=== PATIENT | male | born 1995 | race American Indian/Alaskan Native ===

== ENCOUNTER 2022-02-26 18:25 | Emergency (ER) | payer OTHER ==
[2022-02-26] MEDS ORDERED: LORazepam 2 MG/ML VIAL IM PRN (19:02)
[2022-02-26] MEDS ORDERED: HALOPERIDOL LACTATE 5 MG/1 ML INJ IM PRN (19:02)
--- NOTE | 2022-02-26 19:03 | Emergency Department Report ---
ED General Adult HPI - General Chief complaint: Psych Stated complaint: SI/DEPRESSION Time Seen by Provider: 02/26/22 18:53 Source: patient, family, EMS ( EMS documentation not available at time of chart dictation ), RN notes reviewed Mode of arrival: Stretcher Limitations: No Limitations - History of Present Illness Initial comments: Primary CARE doctor: Perry benton The patient is a 26-year-old gentleman. He has a history of psychiatric disease. He arrived to the hospital with a signed 1013, indicating that the patient has homicidality and suicidality. Patient is accompanied by his mother, Ms. Hatfield; [phone]. She provides the bulk of the patient's history of present illness. His father is Mr. Gabriel Hatfield; [phone]. As per his mother, patient has been acting erratically, and strangely for the past week. Patient has reportedly induced homicidality and suicidality. The patient himself is awake, moving 4 extremities, and breathing spontaneously. He will not answer my open ended questions or close ended questions. EMS reports stable vital signs verbally to myself in the field. As per his mother, he is not COVID-19 vaccinated. As per his mother, no fever, nausea, vomiting or diarrhea, urinary symptoms. She believes he consumes recreational marijuana. She is not sure if he consumes any hard drugs. -: days(s) Severity scale (0 -10): 2 - Related Data Allergies Allergy/AdvReac Type Severity Reaction Status Date / Time No Known Allergies Allergy Unverified 02/26/22 18:35 ED Review of Systems ROS: Stated complaint: SI/DEPRESSION Other details as noted in HPI Comment: Unobtainable due to pts medical conditions (Review of systems as per mom) Constitutional: denies: fever Respiratory: denies: cough, shortness of breath Cardiovascular: denies: chest pain, syncope Gastrointestinal: denies: nausea, vomiting, diarrhea Genitourinary: denies: dysuria, frequency Psychiatric: as per HPI, anxiety, depression ED Past Medical Hx - Past Medical History Hx Psychiatric Treatment: Yes (shizophrenia) ED Physical Exam - General Limitations: Other (Patient is nonverbal, sullen, and withdrawn. The patient will not answer my question) General appearance: alert, anxious - Head Head exam: Present: atraumatic, normocephalic - Eye Eye exam: Present: normal appearance, EOMI. Absent: nystagmus - ENT ENT exam: Present: normal exam, normal orophraynx, mucous membranes moist, normal external ear exam - Neck Neck exam: Present: normal inspection, full ROM. Absent: tenderness, meningismus - Respiratory Respiratory exam: Present: normal lung sounds bilaterally. Absent: respiratory distress, wheezes, rales, rhonchi, stridor, decreased breath sounds - Cardiovascular Cardiovascular Exam: Present: regular rate, normal rhythm, normal heart sounds. Absent: bradycardia, tachycardia, irregular rhythm, systolic murmur, diastolic murmur, rubs, gallop - GI/Abdominal GI/Abdominal exam: Present: soft. Absent: distended, tenderness, guarding, rebound, rigid, pulsatile mass - Rectal Rectal exam: Present: deferred - Extremities Exam Extremities exam: Present: normal inspection - Back Exam Back exam: Present: normal inspection, full ROM. Absent: tenderness, CVA tenderness (R), CVA tenderness (L), paraspinal tenderness, vertebral tenderness - Neurological Exam Neurological exam: Present: other (The patient is awake. The patient moves 4 extremities. The patient is ambulatory with a steady gait. There is no obvious facial droop) - Psychiatric Psychiatric exam: Present: anxious - Skin Skin exam: Present: warm, dry, intact, normal color. Absent: rash ED Course Vital Signs 02/26/22 18:34 Temperature 98.7 F Pulse Rate 88 Respiratory 16 Rate Blood Pressure 130/78 [Right] O2 Sat by Pulse 100 Oximetry - Reevaluation(s) Reevaluation #1: 02/26/22 19:18 Differential diagnosis, including but not limited to: Psychosis, medical ericka arance for psychiatric placement Assessment and plan: 26-year-old gentleman who appears to be psychotic. He arrives with a signed 1013. Continue 1013. Obtain appropriate laboratory studies. Covid swab to facilitate placement. Psychiatric consultation. Discussed this with the patient's mother. She articulated understanding. All questions answered. She requests call back once laboratory studies have resulted. Explained significance of 1013. 02/26/22 21:36 Laboratory studies are reviewed and appreciated. Patient resting comfortably in chair and in no acute distress. Urinalysis, drug screen, and Covid swab pending. The emergency room will follow along as the patient provides these. At this point in time, this patient does not appear to have an immediate medical contraindication to psychiatric admission, evaluation, consultation and placement ED Medical Decision Making - Lab Data Result diagrams: 02/26/22 19:30 02/26/22 19:30 Vital Signs 02/26/22 18:34 Temperature 98.7 F Pulse Rate 88 Respiratory 16 Rate Blood Pressure 130/78 [Right] O2 Sat by Pulse 100 Oximetry Lab Results 02/26/22 02/26/22 02/26/22 Range/Units 19:30 19:30 19:30 WBC (4.5-11.0) K/mm3 RBC (3.65-5.03) M/mm3 Hgb (11.8-15.2) gm/dl Hct (35.5-45.6) % MCV (84-94) fl MCH (28-32) pg MCHC (32-34) % RDW (13.2-15.2) % Plt Count (140-440) K/mm3 Sodium 139 (137-145) mmol/L Potassium 3.8 (3.6-5.0) mmol/L Chloride 103.2 (98-107) mmol/L Carbon Dioxide 21 L (22-30) mmol/L Anion Gap 19 mmol/L BUN 10 (9-20) mg/dL Creatinine 0.8 (0.8-1.3) mg/dL Estimated GFR > 60 ml/min BUN/Creatinine Ratio 13 % Glucose 94 (75-100) mg/dL Calcium 9.4 (8.4-10.2) mg/dL TSH 0.873 (0.270-4.200) mlU/mL Acetaminophen 5.0 L (10.0-30.0) ug/mL Plasma/Serum Alcohol (0-0.07) % 02/26/22 02/26/22 Range/Units 19:30 19:30 WBC 4.5 (4.5-11.0) K/mm3 RBC 5.37 H (3.65-5.03) M/mm3 Hgb 16.8 H (11.8-15.2) gm/dl Hct 49.2 H (35.5-45.6) % MCV 92 (84-94) fl MCH 31 (28-32) pg MCHC 34 (32-34) % RDW 13.6 (13.2-15.2) % Plt Count 297 (140-440) K/mm3 Sodium (137-145) mmol/L Potassium (3.6-5.0) mmol/L Chloride (98-107) mmol/L Carbon Dioxide (22-30) mmol/L Anion Gap mmol/L BUN (9-20) mg/dL Creatinine (0.8-1.3) mg/dL Estimated GFR ml/min BUN/Creatinine Ratio % Glucose (75-100) mg/dL Calcium (8.4-10.2) mg/dL TSH (0.270-4.200) mlU/mL Acetaminophen (10.0-30.0) ug/mL Plasma/Serum Alcohol < 0.01 (0-0.07) % Lab Results 02/26/22 02/26/22 02/26/22 Range/Units 19:30 19:30 19:30 WBC (4.5-11.0) K/mm3 RBC (3.65-5.03) M/mm3 Hgb (11.8-15.2) gm/dl Hct (35.5-45.6) % MCV (84-94) fl MCH (28-32) pg MCHC (32-34) % RDW (13.2-15.2) % Plt Count (140-440) K/mm3 Sodium 139 (137-145) mmol/L Potassium 3.8 (3.6-5.0) mmol/L Chloride 103.2 (98-107) mmol/L Carbon Dioxide 21 L (22-30) mmol/L Anion Gap 19 mmol/L BUN 10 (9-20) mg/dL Creatinine 0.8 (0.8-1.3) mg/dL Estimated GFR > 60 ml/min BUN/Creatinine Ratio 13 % Glucose 94 (75-100) mg/dL Calcium 9.4 (8.4-10.2) mg/dL TSH (0.270-4.200) mlU/mL Salicylates < 0.3 L (2.8-20.0) mg/dL Acetaminophen 5.0 L (10.0-30.0) ug/mL Plasma/Serum Alcohol (0-0.07) % 02/26/22 02/26/22 02/26/22 Range/Units 19:30 19:30 19:30 WBC 4.5 (4.5-11.0) K/mm3 RBC 5.37 H (3.65-5.03) M/mm3 Hgb 16.8 H (11.8-15.2) gm/dl Hct 49.2 H (35.5-45.6) % MCV 92 (84-94) fl MCH 31 (28-32) pg MCHC 34 (32-34) % RDW 13.6 (13.2-15.2) % Plt Count 297 (140-440) K/mm3 Sodium (137-145) mmol/L Potassium (3.6-5.0) mmol/L Chloride (98-107) mmol/L Carbon Dioxide (22-30) mmol/L Anion Gap mmol/L BUN (9-20) mg/dL Creatinine (0.8-1.3) mg/dL Estimated GFR ml/min BUN/Creatinine Ratio % Glucose (75-100) mg/dL Calcium (8.4-10.2) mg/dL TSH 0.873 (0.270-4.200) mlU/mL Salicylates (2.8-20.0) mg/dL Acetaminophen (10.0-30.0) ug/mL Plasma/Serum Alcohol < 0.01 (0-0.07) % Critical care attestation.: If time is entered above; I have spent that time in minutes in the direct care of this critically ill patient, excluding procedure time. ED Disposition Clinical Impression: Psychosis Disposition: [address] [place] [address] Is pt being admited?: No Does the pt Need Aspirin: No Condition: Good
[2022-02-26 19:48] LABS: Hematocrit 49.2 % (35.5-45.6); Hemoglobin 16.8 gm/dl (11.8-15.2); Mean Corpuscular HGB Conc 34 % (32-34); Mean Corpuscular Volume 92 fl (84-94); Platelet Count 297 K/mm3 (140-440); Red Blood Count 5.37 M/mm3 (3.65-5.03); Red Cell Distribution Width 13.6 % (13.2-15.2)
[2022-02-26 20:08] LABS: BUN/Creatinine Ratio 13; Blood Urea Nitrogen 10 mg/dL (9-20); Calcium 9.4 mg/dL (8.4-10.2); Hemolysis Index 13
[2022-02-27 08:37] VITALS: BP 136/99
--- NOTE | 2022-02-27 09:38 | Consultation ---
History of Present Illness - Reason for Consult Consult date: 02/27/22 Reason for consult: eratic behavior - History of Present Psychiatric Illness HPI: The patient is a 26-year-old gentleman. He has a history of psychiatric disease. He arrived to the hospital with a signed 1013, indicating that the patient has homicidality and suicidality. Patient is accompanied by his mother, Ms. Hatfield; [phone]. She provides the bulk of the patient's history of present illness. His father is Mr. Gabriel Hatfield; [phone]. As per his mother, patient has been acting erratically, and strangely for the past week. Patient has reportedly induced homicidality and suicidality. The patient himself is awake, moving 4 extremities, and breathing spontaneously. He will not answer my open ended questions or close ended questions. EMS reports stable vital signs verbally to myself in the field. As per his mother, he is not COVID-19 vaccinated. As per his mother, no fever, nausea, vomiting or diarrhea, urinary symptoms. She believes he consumes recreational marijuana. She is not sure if he consumes any hard drugs. The patient was seen today. He is sitting in the chair, awake. He has linen covering everything except his face. He acknowledges my presence by looking at me when I walk up. He does not speak. He looks at me and nods sometimes or makes sounds by attempting to speak through a closed mouth. PAST PSYCHIATRIC HISTORY Unable to obtain PAST MEDICAL HISTORY: None reported Family Psychiatric History: None reported or documented SOCIAL HISTORY Unable to obtain REVIEW OF SYSTEMS Unable to obtain MENTAL STATUS EXAMINATION Unable to obtain Assessment and Plan Schizophrenia Treatment Plan 1013 Risperidone 1mg po BID Doxepin 10mg po qhs Medical: per primary Sitter: per primary Disposition: Recommend acute psychiatric inpatient treatment Will follow. Thanks Case staffed with Dr. Fowler. Medications and Allergies Allergies Allergy/AdvReac Type Severity Reaction Status Date / Time No Known Allergies Allergy Unverified 02/26/22 18:35 Active Meds: Active Medications Haloperidol Lactate (Haloperidol Lactate 5 Mg/1 Ml Inj) 5 mg IM Q6HR PRN PRN Reason: Agitation Lorazepam (Lorazepam 2 Mg/Ml Vial) 2 mg IM Q4HR PRN PRN Reason: Agitation Mental Status Exam - Vital signs Last Vital Signs Temp 98.5 F 02/27/22 08:35 Pulse 99 H 03/29/22 08:35 Resp 18 02/27/22 08:35 BP 136/99 02/27/22 08:35 Pulse Ox 99 02/27/22 08:35 Results Result Diagrams: 02/26/22 19:30 02/26/22 19:30 Abnormal lab results 02/26/22 02/26/22 02/26/22 Range/Units 19:30 19:30 19:30 RBC (3.65-5.03) M/mm3 Hgb (11.8-15.2) gm/dl Hct (35.5-45.6) % Carbon Dioxide 21 L (22-30) mmol/L Salicylates < 0.3 L (2.8-20.0) mg/dL Acetaminophen 5.0 L (10.0-30.0) ug/mL 02/26/22 Range/Units 19:30 RBC 5.37 H (3.65-5.03) M/mm3 Hgb 16.8 H (11.8-15.2) gm/dl Hct 49.2 H (35.5-45.6) % Carbon Dioxide (22-30) mmol/L Salicylates (2.8-20.0) mg/dL Acetaminophen (10.0-30.0) ug/mL All other labs normal.
[2022-02-27] MEDS ORDERED: risperiDONE 1 MG TAB PO SCH (10:00)
[2022-02-27] MEDS ORDERED: DOXEPIN 10 MG CAP PO SCH (22:00)
== END 2022-02-27 11:28 ==
LOC: EEVIPCON 18:25 → ED 18:25
DX: F29 Unspecified psychosis not due to a substance or known physiological condition (principal); Z20.822 Contact with and (suspected) exposure to COVID-19; F20.9 Schizophrenia, unspecified
CPT/HCPCS: 36415; 80048; 84443; 85027; 99285; U0003; 80320; G0480